=== PATIENT | female | born 1990 | race Caucasian/White ===

== ENCOUNTER 2017-04-05 02:36 | Emergency (ER) | payer MEDICAID ==
[~2017-04-05] VITALS: Ht 162.6 cm; Wt 73.0 kg
[2017-04-05] MEDS ORDERED: BACITRACIN ZINC OINT UDPKT TOP ONE (07:00)
[2017-04-05] MEDS ORDERED: LIDOCAINE HCL 1% 20ML VIAL (Pyxis) INJ MC ONE (07:00)
[2017-04-05 10:50] VITALS: BP 112/73
== END 2017-04-05 11:09 | disposition home or self-care (01) ==
LOC: ER 02:36
DX: S01.511A Laceration without foreign body of lip, initial encounter (principal); G89.11 Acute pain due to trauma; Y07.410 Brother, perpetrator of maltreatment and neglect; Y04.8XXA Assault by other bodily force, initial encounter; Y93.89 Activity, other specified; Y92.89 Other specified places as the place of occurrence of the external cause; F17.210 Nicotine dependence, cigarettes, uncomplicated; F12.90 Cannabis use, unspecified, uncomplicated
CPT/HCPCS: 12011; 70150; 71111; 99284; J3490; X7700; Z7610

== ENCOUNTER 2017-04-07 21:25 | Emergency (ER) | payer MEDICAID ==
[~2017-04-07] VITALS: Ht 165.1 cm; Wt 50.0 kg
[2017-04-07 23:22] VITALS: BP 121/82
== END 2017-04-08 01:04 | disposition home or self-care (01) ==
LOC: ER 21:25
DX: S01.511D Laceration without foreign body of lip, subsequent encounter (principal); X58.XXXD Exposure to other specified factors, subsequent encounter; Y92.89 Other specified places as the place of occurrence of the external cause; Y99.8 Other external cause status
CPT/HCPCS: 99281

== ENCOUNTER 2017-04-10 08:34 | Emergency (ER) | payer MEDICAID ==
[~2017-04-10] VITALS: Ht 162.6 cm; Wt 71.0 kg
[2017-04-10 08:44] VITALS: BP 118/78
== END 2017-04-10 10:25 | disposition home or self-care (01) ==
LOC: ER 08:34
DX: S01.511D Laceration without foreign body of lip, subsequent encounter (principal); F12.10 Cannabis abuse, uncomplicated; X58.XXXD Exposure to other specified factors, subsequent encounter; Y92.89 Other specified places as the place of occurrence of the external cause; Y99.8 Other external cause status
CPT/HCPCS: 99281; 99282

== ENCOUNTER 2017-04-12 14:04 | Emergency (ER) | payer OTHER, MEDICAID ==
[~2017-04-12] VITALS: Ht 162.6 cm; Wt 68.0 kg
[2017-04-12 18:12] VITALS: BP 123/76
== END 2017-04-12 18:13 | disposition home or self-care (01) ==
LOC: ER 17:45
DX: Z48.02 Encounter for removal of sutures (principal); R03.0 Elevated blood-pressure reading, without diagnosis of hypertension; F17.210 Nicotine dependence, cigarettes, uncomplicated; Z71.6 Tobacco abuse counseling
CPT/HCPCS: 99281; Z7610

== ENCOUNTER 2017-06-03 17:42 | Emergency (ER) | payer OTHER, MEDICAID ==
[~2017-06-03] VITALS: Ht 160 cm; Wt 68.0 kg
[2017-06-03] MEDS ORDERED: SODIUM CHLORIDE 0.9% 1,000 ML IV ONE ×2 (18:54→21:44)
[2017-06-03] MEDS ORDERED: ONDANSETRON HCL 4MG/2ML VIAL IV ONE (19:30)
[2017-06-03 19:31] LABS: BASOPHILS % 0.4 % (0.0-2.0); EOSINOPHILS % 0.2 % (0.0-5.0); HEMATOCRIT. 38.3 % (36.0-48.0); HEMOGLOBIN. 12.6 g/dL (12.0-16.0); LYMPHOCYTES % 38.7 % (20.0-50.0); MEAN CORPUSCULAR HEMOGLOBIN 25.9 pg (28.0-32.0); MEAN CORPUSCULAR VOLUME 78.9 fL (81.0-99.0); MEAN PLATELET VOLUME 8.6 fl (7.4-10.4); MONOCYTES % 8.9 % (2.0-8.0); NEUTROPHILS % 51.8 % (40.0-76.0); PLATELET 230 x1000/uL (130-400); RED BLOOD CELL COUNT 4.86 mill/uL (4.2-5.4); RED CELL DISTRIBUTION WIDTH 18.2 % (11.6-14.6)
[2017-06-03 19:39] LABS: CARBON DIOXIDE 27 mEq/L (21-32); CHLORIDE 104 mEq/L (98-107); ETHANOL BLOOD 283 mg/dL
[2017-06-03 20:05] LABS: HCG SCREEN NEGATIVE
[2017-06-03 23:40] LABS: CLARITY URINE CLOUDY (CLEAR); COLOR URINE YELLOW (YELLOW); GLUCOSE URINE NEGATIVE (NEGATIVE); KETONES URINE NEGATIVE (NEGATIVE); LEUKOCYTE ESTERASE URINE NEGATIVE (NEGATIVE); NITRITE URINE NEGATIVE (NEGATIVE); OCCULT BLOOD URINE NEGATIVE (NEGATIVE); PH URINE 7.5 (4.5-8.0); PROTEIN URINE 1+ (NEGATIVE); SPECIFIC GRAVITY URINE 1.017 (1.005-1.030); UROBILINOGEN URINE 0.2 E.U./dL (0.2-1.0)
[2017-06-03 23:49] LABS: *AMPHETAMINES SCREEN URINE NEGATIVE (NEGATIVE); *BARBITURATES SCREEN URINE NEGATIVE (NEGATIVE); *BENZODIAZEPINES SCREEN URINE NEGATIVE (NEGATIVE); *COCAINE SCREEN URINE NEGATIVE (NEGATIVE); METHADONE URINE SCREEN NEGATIVE (NEGATIVE); OPIATES URINE SCREEN NEGATIVE (NEGATIVE); PHENCYCLIDINE URINE SCREEN NEGATIVE (NEGATIVE)
[2017-06-03 23:59] LABS: CANNABINOID URINE SCREEN PRESUMTIVE POSITIVE (NEGATIVE)
[2017-06-04 01:00] VITALS: BP 106/65
== END 2017-06-04 01:30 | disposition left against medical advice (07) ==
LOC: ER 17:58
DX: F10.129 Alcohol abuse with intoxication, unspecified (principal); F19.10 Other psychoactive substance abuse, uncomplicated; F12.10 Cannabis abuse, uncomplicated; Y90.8 Blood alcohol level of 240 mg/100 ml or more
CPT/HCPCS: 36415; 80048; 80305; 80307; 80329; 81001; 84703; 85025; 96361; 96374; 99285; G0482; J2405; J7030; Z7610

== ENCOUNTER 2018-03-21 15:49 | Emergency (ER) | payer OTHER, MEDICAID ==
[~2018-03-21] VITALS: Ht 165.1 cm; Wt 80.0 kg
[2018-03-21 16:53] LABS: BASOPHILS % 0.3 % (0.0-2.0); EOSINOPHILS % 1.4 % (0.0-5.0); HEMATOCRIT. 37.9 % (36.0-48.0); HEMOGLOBIN. 12.7 g/dL (12.0-16.0); LYMPHOCYTES % 27.5 % (20.0-50.0); MEAN CORPUSCULAR HEMOGLOBIN 28.9 pg (28.0-32.0); MEAN CORPUSCULAR VOLUME 85.9 fL (81.0-99.0); MEAN PLATELET VOLUME 8.9 fl (7.4-10.4); MONOCYTES % 7.2 % (2.0-8.0); NEUTROPHILS % 63.6 % (40.0-76.0); PLATELET 215 x1000/uL (130-400); RED BLOOD CELL COUNT 4.42 mill/uL (4.2-5.4); RED CELL DISTRIBUTION WIDTH 15.5 % (11.6-14.6)
[2018-03-21 16:57] LABS: CHLORIDE 105 mEq/L (98-107)
[2018-03-21 17:15] LABS: CLARITY URINE CLEAR (CLEAR); COLOR URINE YELLOW (YELLOW); KETONES URINE NEGATIVE (NEGATIVE); LEUKOCYTE ESTERASE URINE NEGATIVE (NEGATIVE); NITRITE URINE NEGATIVE (NEGATIVE); OCCULT BLOOD URINE TRACE (NEGATIVE); PROTEIN URINE NEGATIVE (NEGATIVE); SPECIFIC GRAVITY URINE 1.004 (1.005-1.030); UROBILINOGEN URINE 0.2 E.U./dL (0.2-1.0)
[2018-03-21 17:24] LABS: B-HCG QUANTITATIVE 29184 mIU/mL (<3)
[2018-03-21] MEDS ORDERED: RHO(D) IMMUNE GLOBULIN 300 MCG/SYR IM ONE (19:45)
[2018-03-21 21:42] VITALS: BP 108/61
== END 2018-03-21 23:20 | disposition home or self-care (01) ==
LOC: ER 19:17
DX: O20.0 Threatened abortion (principal); O99.321 Drug use complicating pregnancy, first trimester; F12.90 Cannabis use, unspecified, uncomplicated; O36.0910 Maternal care for other rhesus isoimmunization, first trimester, not applicable or unspecified; Z67.11 Type A blood, Rh negative; Z3A.01 Less than 8 weeks gestation of pregnancy
CPT/HCPCS: 36415; 36430; 76801; 76817; 80053; 81003; 82962; 84702; 85025; 85610; 86850; 86900; 86901; 90384; 96372; 99285; Z7610

== ENCOUNTER 2018-11-21 18:20 | Emergency (ER) | payer MEDICAID ==
[~2018-11-21] VITALS: Ht 162.6 cm; Wt 68.0 kg
[2018-11-21 19:35] VITALS: BP 118/80
[2018-11-21] MEDS ORDERED: ACETAMINOPHEN 325MG TABLET PO ONE (22:30)
== END 2018-11-22 01:06 | disposition home or self-care (01) ==
LOC: ER 18:20
DX: S92.102A Unspecified fracture of left talus, initial encounter for closed fracture (principal); F12.10 Cannabis abuse, uncomplicated; F17.200 Nicotine dependence, unspecified, uncomplicated; W18.31XA Fall on same level due to stepping on an object, initial encounter; Y93.01 Activity, walking, marching and hiking; Y92.89 Other specified places as the place of occurrence of the external cause; Y99.8 Other external cause status
CPT/HCPCS: 29515; 73610; 81025; 99283

== ENCOUNTER 2019-12-17 22:18 | Emergency (ER) | payer MEDICAID ==
[~2019-12-17] VITALS: Ht 167.6 cm; Wt 70.0 kg
[2019-12-17 22:44] VITALS: BP 114/78
[2019-12-17] MEDS ORDERED: ACETAMINOPHEN 325MG TABLET PO ONE (23:15)
== END 2019-12-17 23:25 | disposition home or self-care (01) ==
LOC: ER 22:18
DX: K64.4 Residual hemorrhoidal skin tags (principal); F12.10 Cannabis abuse, uncomplicated
CPT/HCPCS: 99282

== ENCOUNTER 2024-01-22 17:59 | Emergency (ER) | payer MEDICAID, OTHER ==
[~2024-01-22] VITALS: Ht 157.5 cm; Wt 98.0 kg
[2024-01-22 18:22] VITALS: BP 128/88; PULSE 97; RESP 20; TEMP 98; O2SAT 99
[2024-01-22 19:48] LABS: BASOPHILS % 0.2 % (0.0-2.0); EOSINOPHILS % 0.1 % (0.0-5.0); HEMOGLOBIN. 12.8 g/dL (12.0-16.0); LYMPHOCYTES % 19.6 % (20.0-50.0); MEAN CORPUSCULAR HEMOGLOBIN 28.7 pg (28.0-32.0); MEAN CORPUSCULAR HGB CONC 32.8 g/dL (31.0-37.0); MEAN CORPUSCULAR VOLUME 87.5 fL (81.0-99.0); MEAN PLATELET VOLUME 8.6 fl (7.4-10.4); MONOCYTES % 6.5 % (2.0-8.0); NEUTROPHILS % 73.6 % (40.0-76.0); PLATELET 231 x1000/uL (130-400); RED BLOOD CELL COUNT 4.46 mill/uL (4.2-5.4); RED CELL DISTRIBUTION WIDTH 14.1 % (11.6-14.6); WHITE BLOOD COUNT 10.3 x1000/uL (4.5-11.0)
[2024-01-22 19:52] LABS: CHLORIDE 103 mEq/L (98-107); POTASSIUM 4.3 mEq/L (3.5-5.1); SODIUM 136 mEq/L (136-145)
[2024-01-22 19:53] LABS: CARBON DIOXIDE 26 mEq/L (21-32)
[2024-01-22 19:54] LABS: CALCIUM 9.9 mg/dL (8.7-10.4)
[2024-01-22 19:58] LABS: CREATININE 0.8 mg/dL (0.6-1.0); GLUCOSE 105 mg/dL (70-105); UREA NITROGEN BLOOD 8 mg/dL (9-23)
[2024-01-22 19:59] LABS: ETHANOL BLOOD < 10 mg/dL (<10)
[2024-01-22] MEDS: ONDANSETRON HCL 4MG TABLET PO ONE (20:28)
[2024-01-22] MEDS ORDERED: METOCLOPRAMIDE HCL 10MG TABLET PO ONE (21:30)
== END 2024-01-22 22:49 | disposition home or self-care (01) ==
LOC: ER 18:33
DX: R11.2 Nausea with vomiting, unspecified (principal); F12.10 Cannabis abuse, uncomplicated
CPT/HCPCS: 80048; 80320; 85025; 36415; 99283; Q0162; G0480

== ENCOUNTER 2025-03-11 18:51 | Emergency (ER) | payer MEDICAID ==
[~2025-03-11] VITALS: Ht 167.6 cm; Wt 77.0 kg
[2025-03-11 18:56] VITALS: O2SAT 99
[2025-03-11] MEDS ORDERED: ACET-2708 MT (20:42)
[2025-03-11 21:56] VITALS: BP 136/75; PULSE 65; RESP 20; TEMP 36.9; O2SAT 100
== END 2025-03-11 22:09 | disposition home or self-care (01) ==
LOC: ER 18:51
DX: S93.402A Sprain of unspecified ligament of left ankle, initial encounter (principal); F15.90 Other stimulant use, unspecified, uncomplicated; Z79.899 Other long term (current) drug therapy; X50.1XXA Overexertion from prolonged static or awkward postures, initial encounter; Y93.89 Activity, other specified; Y92.89 Other specified places as the place of occurrence of the external cause; Y99.8 Other external cause status
CPT/HCPCS: 73610; 73630; 99284